=== PATIENT | female | born 1980 | race Hispanic/Latino ===

== ENCOUNTER → 2016-11-08 | Outpatient (CLI) | payer OTHER ==
[~2016-11-08] MED LIST: ADV250INH INH; ALBU17IN INH; PRENTAB9 PO
[2016-11-08 18:58] LABS: BASO # 0.1 K/mm3 (0.0-0.2); BASO % 0.7 % (0.0-1.0); EOS # 0.9 K/mm3 (0.0-0.50); EOS % 9.6 % (0.0-3.0); LARGE UNSTAINED CELL # 0.2 K/mm3 (0.0-0.4); LARGE UNSTAINED CELL % 2.1 % (0.0-4.0); LYMPH # 2.3 K/mm3 (1.5-4.5); LYMPH % 25.8 % (24.0-44.0); MEAN CORPUSCULAR HEMOGLOBIN 27.1 pg (27.0-33.0); MEAN CORPUSCULAR HGB CONC 32.6 g/dl (32.0-36.5); MEAN CORPUSCULAR VOLUME 83.2 fl (80.0-96.0); MONO # 0.4 K/mm3 (0.0-0.8); MONO % 4.6 % (0.0-5.0); NEUTROPHILS # 5.2 K/mm3 (1.8-7.7); NEUTROPHILS % 57.2 % (36.0-66.0); PLATELET COUNT, AUTOMATED 417 k/mm3 (150-450); RED CELL DISTRIBUTION WIDTH 13.9 % (11.5-14.5)
[2016-11-08 19:03] LABS: ALT/SGPT 21 U/L (12-78); AST/SGOT 11 U/L (15-37); BILIRUBIN,TOTAL 0.2 MG/DL (0.2-1.0); CREATININE FOR GFR 0.57 MG/DL (0.55-1.02); GLOMERULAR FILTRATION RATE > 60.0 (>60); URIC ACID 3.3 MG/DL (2.6-6.0)
== END ==
LOC: M SMT 15:01
PROVIDERS: ATTEND Advanced Practice Midwife
DX: Z34.82 Encounter for supervision of other normal pregnancy, second trimester (principal); Z36 Encounter for antenatal screening of mother; Z3A.00 Weeks of gestation of pregnancy not specified

== ENCOUNTER → 2016-11-29 | Outpatient (CLI) | payer OTHER ==
--- NOTE | 2016-11-29 14:57 | REP ---
Clinical: Anatomical evaluation. Comparison: None . Findings: Examination demonstrates a single live intrauterine in breech presentation. motion is identified by technologist. Placenta is noted anterior fundal and grade zero without evidence for placenta previa or abruption. Amniotic fluid volume is normal. Cervix measures 3.8 cm in length and appears closed. No evidence for nuchal cord. Gestational age by LMP 19 weeks 4-day with BOONE 04/21/2017 . Gestational age by current measurements 19 weeks 5 days with BOONE 04/20/2017 . FHR equals 153 beats per minute. BPD 4.5 cm 19 weeks 3 days HC 17.3 cm 19 weeks 6 days AC 14.7 cm 20 weeks 0 days FL 3.2 cm 19 weeks 6 days HL 2.9 cm 19 weeks 4 days HC/AC ratio 1.18 Estimated weight 320 grams ( 57th percentile). Anatomical assessment demonstrates normal structures including cranium, choroid plexus, cavum, cerebellum/posterior fossa, facial profile, lungs, four-chamber heart/ left ventricular outflow tract, diaphragm, stomach, cord insertion/three-vessel cord, kidneys/bladder, spine, and extremities. Limited evaluation of the nose and lips and right cardiac ventricular outflow tract as well as mild subjective renal pelviectasis which is within normal range. Impression: Single live intrauterine in breech presentation demonstrating appropriate interval growth. Anatomical limitations as described above. The remainder of the anatomical assessment is complete and normal. Signed by Missael Torres MD 11/29/2016 02:48 P
== END ==
LOC: M RAD 13:44
PROVIDERS: ATTEND Advanced Practice Midwife
DX: O32.1XX0 Maternal care for breech presentation, not applicable or unspecified (principal); Z36 Encounter for antenatal screening of mother; Z3A.19 19 weeks gestation of pregnancy

== ENCOUNTER → 2016-12-18 | Outpatient (CLI) | payer OTHER ==
--- NOTE | 2016-12-18 20:25 | REP ---
Obstetric sonography: History: Supervision of , followup anatomy. Findings: Scanning through the gravid uterus demonstrates a viable single intrauterine gestation in a transverse head to the maternal left lie. motion is observed and heart rate is recorded at 147 beats per minute. An anterior grade 1 placenta is seen without evidence of previa or abruption. Amniotic fluid is subjectively normal. Closed cervical length is 6.1 cm. This is measured transabdominally. There has been appropriate interval growth. The umbilical cord is seen draping across the shoulders and neck region. No abnormality is noted. Cross section of the umbilical cord is less than optimally seen today. spine is less than optimally seen today due to position, but these structures were identified previously. The following additional anatomic structures are identified today and felt to be sonographically unremarkable: cranium, cavum, cerebellum and posterior fossa, face and profile, lungs, four-chamber heart with left and right ventricular outflow tract views, diaphragm, left-sided stomach, abdominal wall cord insertion, kidneys and bladder, upper and lower extremities. Biometry chart: BPD 5.3 cm = 22 weeks 0 days HC 20.5 cm = 22 weeks 4 days AC 18.5 cm = 23 weeks 2 days FL 3.9 cm = 22 weeks 3 days HL 3.5 cm = 22 weeks 0 days HC/AC ratio normal 1.11. Cephalic index normal 0.70. Estimated weight 539 grams 1 pound 2 ounces 62nd percentile for 22 weeks 2 days. Impression: Viable single intrauterine gestation at 22 weeks 3 days by today's composite criteria. Expected gestational age estimate based on prior sonography is also 22 weeks 3 days. BOONE by prior sonography April 20, 2017. In combination with the previous study, anatomic survey is felt to be complete. Signed by Bubba Barnett MD 12/19/2016 09:29 A
== END ==
LOC: M RAD 17:43
PROVIDERS: ATTEND Advanced Practice Midwife
DX: Z36.2 Encounter for other antenatal screening follow-up (principal)

== ENCOUNTER 2016-12-21 10:33 | Outpatient (CLI) | payer OTHER ==
[~2016-12-21] VITALS: Ht 160 cm; Wt 78.2 kg
[2016-12-21] MEDS ORDERED: ADV250INH INH (11:04)
[2016-12-21] MEDS ORDERED: ALBU17IN INH (11:04)
[2016-12-21] MEDS ORDERED: PRENTAB9 PO (11:04)
[2016-12-21 11:06] VITALS: BP 107/68
[2016-12-21 11:45] VITALS: BP 116/65
[2016-12-21 12:15] VITALS: BP 127/78
== END 2016-12-21 12:32 | disposition home or self-care (01) ==
LOC: M LDO 10:33
PROVIDERS: ATTEND Obstetrics & Gynecology
DX: O99.89 Other specified diseases and conditions complicating pregnancy, childbirth and the puerperium (principal); Z3A.22 22 weeks gestation of pregnancy; W19.XXXA Unspecified fall, initial encounter; X58.XXXA Exposure to other specified factors, initial encounter; Y93.9 Activity, unspecified; Y92.9 Unspecified place or not applicable; Y99.8 Other external cause status

== ENCOUNTER → 2017-01-31 | Outpatient (CLI) | payer OTHER ==
[2017-01-31 13:14] LABS: BASO # 0.1 10^3/uL (0.0-0.2); BASO % 0.9 % (0.0-1.0); EOS # 0.5 10^3/uL (0.0-0.50); EOS % 6.3 % (0.0-3.0); IMMATURE GRANULOCYTE % 0.9 % (0-0); LYMPH # 2.3 10^3/uL (1.5-4.5); LYMPH % 26.6 % (24.0-44.0); MEAN CORPUSCULAR HEMOGLOBIN 25.1 pg (27.0-33.0); MEAN CORPUSCULAR HGB CONC 31.8 g/dl (32.0-36.5); MEAN CORPUSCULAR VOLUME 78.9 fl (80.0-96.0); MONO # 0.5 10^3/uL (0.0-0.8); MONO % 6.2 % (0.0-5.0); NEUTROPHILS % 59.1 % (36.0-66.0); PLATELET COUNT, AUTOMATED 380 10^3/uL (150-450); RED CELL DISTRIBUTION WIDTH 14.6 % (11.5-14.5); WHITE BLOOD COUNT 8.5 10^3/uL (4.0-10.0)
== END ==
LOC: M SMT 09:55
PROVIDERS: ATTEND Advanced Practice Midwife
DX: O09.513 Supervision of elderly primigravida, third trimester (principal)

== ENCOUNTER → 2017-02-09 | Outpatient (CLI) | payer OTHER | LOC: M LAB 07:12 | PROVIDERS: ATTEND Advanced Practice Midwife | DX: O09.523 Supervision of elderly multigravida, third trimester (principal) ==

== ENCOUNTER → 2017-02-14 | Outpatient (REF) | payer OTHER | LOC: M LAB REF 13:15 | PROVIDERS: ATTEND Advanced Practice Midwife | DX: O09.523 Supervision of elderly multigravida, third trimester (principal) ==

== ENCOUNTER → 2017-03-15 | Outpatient (CLI) | payer OTHER ==
[2017-03-15 18:35] LABS: MEAN CORPUSCULAR HEMOGLOBIN 23.1 pg (27.0-33.0); MEAN CORPUSCULAR HGB CONC 31.1 g/dl (32.0-36.5); MEAN CORPUSCULAR VOLUME 74.4 fl (80.0-96.0); PLATELET COUNT, AUTOMATED 400 10^3/uL (150-450); RED CELL DISTRIBUTION WIDTH 15.8 % (11.5-14.5); WHITE BLOOD COUNT 7.4 10^3/uL (4.0-10.0)
== END ==
LOC: M SMT 14:59
DX: O99.013 Anemia complicating pregnancy, third trimester (principal)

== ENCOUNTER 2017-04-06 16:25 | Inpatient (IN) | payer OTHER ==
[2017-04-06] MEDS ORDERED: LR 1,000 ML IV (18:22)
[2017-04-06 19:12] LABS: HEMATOCRIT 29.5 % (36.0-47.0); HEMOGLOBIN 9.3 g/dl (12.0-16.0); MEAN CORPUSCULAR HGB CONC 31.5 g/dl (32.0-36.5); MEAN CORPUSCULAR VOLUME 69.9 fl (80.0-96.0); PLATELET COUNT, AUTOMATED 358 10^3/uL (150-450); RED BLOOD COUNT 4.22 10^6/uL (4.00-5.40); RED CELL DISTRIBUTION WIDTH 16.8 % (11.5-14.5); WHITE BLOOD COUNT 8.3 10^3/uL (4.0-10.0)
[2017-04-06 19:41] LABS: CREATININE,RANDOM URINE 48.2 MG/DL
[2017-04-06 19:41] LABS: TOTAL PROTEIN,RANDOM URINE 13.8 MG/DL (0.0-12.0)
[2017-04-06 19:43] LABS: ALT/SGPT 13 U/L (12-78); AST/SGOT 22 U/L (7-37); BILIRUBIN,TOTAL 0.3 MG/DL (0.2-1.0); CREATININE FOR GFR 0.45 MG/DL (0.55-1.02); GLOMERULAR FILTRATION RATE > 60.0 (>60); LDH LACTATE DEHYDROGENASE 270 U/L (84-246); URIC ACID 3.1 MG/DL (2.6-6.0)
[2017-04-06] MEDS: ACETAMINOPHEN 500 MG TAB PO (20:23)
[2017-04-06] MEDS: miSOPROStol 50 MCG 1/2 TAB (S0191) SL (20:23)
[2017-04-06] MEDS: LACTATED RINGER'S 1000 ML IV (20:24)
[2017-04-06] MEDS: PENICILLIN G POTASSIUM IV 5 MU in D5W MINI-BAG PLUS 100 ML IV (20:24)
[2017-04-07] MEDS: PENICILLIN G POTASSIUM IV 2.5 MU in APPROPRIATE DILUENT 1 EA IV ×4 (00:30→13:24)
[2017-04-07] MEDS: OXYTOCIN DRIP 30 UNITS in APPROPRIATE DILUENT 1 EA IV (00:42)
[2017-04-07] MEDS ORDERED: FENTANYL 2MCG/ML ROPIVACAINE 0.2% IN 0.9% NACL 200ML IVBAG As Ordered (07:19)
[2017-04-07] MEDS ORDERED: EPIDURAL COMMENT XX (10:00)
[2017-04-07] MEDS ORDERED: REFRIGERATOR IV KEYS XX (10:00)
[2017-04-07] MEDS ORDERED: ePHEDrine INJ 50 MG/ML VIAL IV (10:00)
[2017-04-07] MEDS ORDERED: FENTANYL/ROPIVACAINE/NACL BAG 200 ML EPIDURAL (10:00)
[2017-04-07] MEDS ORDERED: EPIDURAL/PCA KEYS XX (10:00)
[2017-04-07] MEDS ORDERED: LACTATED RINGER'S 1000 ML IV (10:00)
[2017-04-07] MEDS ORDERED: NALOXONE INJ 0.4 MG/1 ML VIAL (J2310) IV ×3 (10:00→14:45)
[2017-04-07] MEDS ORDERED: diphenhydrAMINE INJ 50MG/ML VIAL (J1200) IV (10:00)
[2017-04-07] MEDS: ONDANSETRON 4MG/2ML VIAL (J2405) IV (10:13)
[2017-04-07] MEDS ORDERED: BICITRA 30ML SOLN UDC As Ordered (14:29)
[2017-04-07] MEDS ORDERED: ceFAZolin 2 GM/D5W 50 ML IV BAG (J0690 PER 500MG) As Ordered (14:32)
[2017-04-07] MEDS ORDERED: MORPHINE PRES-FREE INJ 10 MG/10 ML VIAL (J2274) As Ordered (14:34)
[2017-04-07] MEDS ORDERED: ONDANSETRON 4MG/2ML VIAL (J2405) IV ×3 (14:45→16:30)
[2017-04-07] MEDS ORDERED: METOCLOPRAMIDE INJ 10MG/2ML VIAL (J2765) IV (14:45)
[2017-04-07] MEDS ORDERED: AZITHROMYCIN INJ 500MG VIAL (J0456) As Ordered (14:53)
[2017-04-07] MEDS ORDERED: OXYTOCIN INJ 10 UNITS/ML VIAL (J2590) As Ordered ×6 (14:56→15:13)
[2017-04-07 15:00] LABS: CORD GAS ABE V -3.6; CORD GAS HCO3 V 23.4 MEQ/L; CORD GAS O2 SAT V 62.6 %; CORD GAS PCO2 V 49.3 mmHg; CORD GAS PH V 7.295 UNITS; CORD GAS PO2 V 26.3 mmHg; CORD GAS SBC V 20.6 MEQ/L
[2017-04-07 15:01] LABS: CORD GAS ABE A -5.1; CORD GAS HCO3 A 21.1 MEQ/L; CORD GAS O2 SAT A 57.4 %; CORD GAS PCO2 A 42.9 mmHg; CORD GAS PH A 7.309 UNITS; CORD GAS PO2 A 25.5 mmHg; CORD GAS SBC A 19.4 MEQ/L; CORD GAS TCO2 A 22.4 MEQ/L
[2017-04-07] MEDS ORDERED: ONDANSETRON 4MG/2ML VIAL (J2405) As Ordered (15:07)
[2017-04-07] MEDS ORDERED: METOCLOPRAMIDE INJ 10MG/2ML VIAL (J2765) As Ordered (15:07)
[2017-04-07] MEDS ORDERED: PHENYLephrine HCL 500 MCG/5 ML (100MCG/ML) SYRINGE (J2370) As Ordered (15:07)
[2017-04-07] MEDS ORDERED: ePHEDrine INJ 50 MG/ML VIAL As Ordered (15:16)
[2017-04-07 15:43] LABS: IMMEDIATE SPIN CROSSMATCH 1 3
[2017-04-07 15:47] LABS: HEMATOCRIT 24.5 % (36.0-47.0); HEMOGLOBIN 7.8 g/dl (12.0-16.0); MEAN CORPUSCULAR HEMOGLOBIN 21.8 pg (27.0-33.0); MEAN CORPUSCULAR HGB CONC 31.8 g/dl (32.0-36.5); MEAN CORPUSCULAR VOLUME 68.6 fl (80.0-96.0); PLATELET COUNT, AUTOMATED 208 10^3/uL (150-450); RED BLOOD COUNT 3.57 10^6/uL (4.00-5.40); RED CELL DISTRIBUTION WIDTH 16.6 % (11.5-14.5); WHITE BLOOD COUNT 7.8 10^3/uL (4.0-10.0)
[2017-04-07] MEDS ORDERED: RHOGAM 300 MCG (1500 IU) INJ (J2790) IM (16:30)
[2017-04-07] MEDS ORDERED: PROMETHAZINE 25 MG TAB PO (16:30)
[2017-04-07] MEDS ORDERED: MEASLES,MUMPS,RUBELLA VACCINE INJ (MMR-II) (90707) SC (16:30)
[2017-04-07] MEDS ORDERED: KETOROLAC 30 MG/ML VIAL (J1885) IV (16:30)
[2017-04-07] MEDS ORDERED: fentaNYL 100 MCG/2 ML INJECTION (J3010) IV (16:30)
[2017-04-07] MEDS: DOCUSATE SODIUM 100 MG CAP PO (21:00)
[2017-04-07] MEDS: LOPERAMIDE 2 MG CAP PO (21:06)
[2017-04-07] MEDS: LR 1,000 ML IV (21:06)
[2017-04-07] MEDS: miSOPROStol 200 MCG TAB (S0191) PR (21:16)
[2017-04-07] MEDS: KETOROLAC 30 MG/ML VIAL (J1885) IV (22:49)
[2017-04-08] MEDS: LR 1,000 ML IV ×2 (01:20→08:18)
[2017-04-08] MEDS: NALBUPHINE HCL 10 MG/ML AMP (J2300) IV (01:21)
[2017-04-08] MEDS: KETOROLAC 30 MG/ML VIAL (J1885) IV ×3 (05:12→17:12)
[2017-04-08 06:51] LABS: HEMATOCRIT 27.3 % (36.0-47.0); MEAN CORPUSCULAR HEMOGLOBIN 23.7 pg (27.0-33.0); PLATELET COUNT, AUTOMATED 245 10^3/uL (150-450); RED BLOOD COUNT 3.79 10^6/uL (4.00-5.40); RED CELL DISTRIBUTION WIDTH 17.7 % (11.5-14.5); WHITE BLOOD COUNT 15.5 10^3/uL (4.0-10.0)
[2017-04-08] MEDS: PRENATAL VITAMINS CHEWABLE TABLET PO (09:55)
[2017-04-08] MEDS: DOCUSATE SODIUM 100 MG CAP PO ×2 (09:55→19:39)
[2017-04-08] MEDS: PERCOCET 5MG/325MG TAB PO ×3 (09:56→19:40)
[2017-04-09] MEDS: IBUPROFEN 800 MG TAB PO ×3 (00:37→17:05)
[2017-04-09] MEDS: PERCOCET 5MG/325MG TAB PO ×4 (00:37→21:31)
[2017-04-09] MEDS: PRENATAL VITAMINS CHEWABLE TABLET PO (08:34)
[2017-04-09] MEDS: DOCUSATE SODIUM 100 MG CAP PO ×2 (08:34→21:29)
[2017-04-10] MEDS: IBUPROFEN 800 MG TAB PO ×2 (00:58→09:49)
[2017-04-10] MEDS: PERCOCET 5MG/325MG TAB PO (03:51)
[2017-04-10] MEDS: DOCUSATE SODIUM 100 MG CAP PO (09:47)
[2017-04-10] MEDS: PRENATAL VITAMINS CHEWABLE TABLET PO (09:48)
== END 2017-04-10 11:50 | disposition home or self-care (01) | DRG 766 ==
LOC: M LDO 16:25 → M OBS 04-07 17:35 → M LDI 18:44
PROC: 10D00Z1 Extraction of Products of Conception, Low, Open Approach (ICD-10-PCS; principal; 2017-04-07 14:33)
PROC: 3E0P7GC Introduction of Other Therapeutic Substance into Female Reproductive, Via Natural or Artificial Opening (ICD-10-PCS; 2017-04-07 14:33)
PROC: 10907ZC Drainage of Amniotic Fluid, Therapeutic from Products of Conception, Via Natural or Artificial Opening (ICD-10-PCS; 2017-04-07 14:33)
PROC: 30253N1 (ICD-10-PCS; 2017-04-07 14:33)
DX: O14.94 Unspecified pre-eclampsia, complicating childbirth (principal); O99.824 Streptococcus B carrier state complicating childbirth; O72.1 Other immediate postpartum hemorrhage; Z3A.37 37 weeks gestation of pregnancy; O99.02 Anemia complicating childbirth; D64.9 Anemia, unspecified; O76 Abnormality in fetal heart rate and rhythm complicating labor and delivery; O64.8XX0 Obstructed labor due to other malposition and malpresentation, not applicable or unspecified; Z37.0 Single live birth

== ENCOUNTER 2018-01-28 08:08 | Emergency (ER) | payer OTHER ==
[2018-01-28] MEDS: ONDANSETRON 4MG/2ML VIAL (J2405) IV (08:46)
[2018-01-28] MEDS: NS 500 ML IV (08:46)
[2018-01-28] MEDS: KETOROLAC 30 MG/ML VIAL (J1885) IV (08:47)
[2018-01-28 08:51] LABS: BASO # 0.1 10^3/uL (0.0-0.2); BASO % 1.4 % (0.0-1.0); EOS # 0.6 10^3/uL (0.0-0.50); EOS % 8.8 % (0.0-3.0); HEMATOCRIT 39.5 % (36.0-47.0); HEMOGLOBIN 12.8 g/dl (12.0-15.5); IMMATURE GRANULOCYTE % 0.2 % (0-3.0); LYMPH # 2.7 10^3/uL (1.5-4.5); LYMPH % 43.2 % (24.0-44.0); MEAN CORPUSCULAR HEMOGLOBIN 26.4 pg (27.0-33.0); MEAN CORPUSCULAR HGB CONC 32.4 g/dl (32.0-36.5); MEAN CORPUSCULAR VOLUME 81.4 fl (80.0-96.0); MONO # 0.4 10^3/uL (0.0-0.8); MONO % 6.2 % (0.0-5.0); NEUTROPHILS # 2.5 10^3/uL (1.8-7.7); NEUTROPHILS % 40.2 % (36.0-66.0); PLATELET COUNT, AUTOMATED 359 10^3/uL (150-450); RED BLOOD COUNT 4.85 10^6/uL (4.00-5.40); RED CELL DISTRIBUTION WIDTH 14.8 % (11.5-14.5); WHITE BLOOD COUNT 6.3 10^3/uL (4.0-10.0)
[2018-01-28 08:59] LABS: APPEARANCE, URINE CLEAR (CLEAR); BACTERIA, URINE AUTO NEGATIVE (NEGATIVE); BILIRUBIN, URINE AUTO NEGATIVE (NEGATIVE); BLOOD, URINE BLOOD NEGATIVE (NEGATIVE); COLOR, URINE YELLOW (YELLOW); GLUCOSE, URINE (UA) AUTO NEGATIVE (NEGATIVE); KETONE, URINE AUTO TRACE mg/dL (NEGATIVE); LEUKOCYTE ESTERASE, URINE AUTO TRACE (NEGATIVE); MUCUS, URINE MODERATE (NEGATIVE); NITRITE, URINE AUTO NEGATIVE (NEGATIVE); PROTEIN, URINE AUTO NEGATIVE (NEGATIVE); RBC, URINE AUTO 1 /HPF (0-3); SPECIFIC GRAVITY URINE AUTO 1.024 (1.002-1.035); SQUAMOUS EPITHELIAL CELL UR AU 3 /HPF (0-6); WBC, URINE AUTO 4 /HPF (0-3)
[2018-01-28] MEDS: GASTROGRAFIN SOLUTION 30ML PO ×2 (09:18→10:00)
[2018-01-28 09:39] LABS: LACTIC ACID SEPSIS PROTOCOL 1.8 MMOL/L (0.4-2.0)
[2018-01-28 09:40] LABS: ALBUMIN/GLOBULIN RATIO 1.11 (1.00-1.93); ALKALINE PHOSPHATASE 141 U/L (45-117); ALT/SGPT 143 U/L (12-78); AMYLASE 51 U/L (25-115); ANION GAP 8 MEQ/L (8-16); AST/SGOT 77 U/L (7-37); BILIRUBIN,TOTAL 0.4 MG/DL (0.2-1.0); BLOOD UREA NITROGEN 10 MG/DL (7-18); C REACTIVE PROTEIN QUANTITATIV < 0.30 MG/DL (0.00-0.30); CALCIUM LEVEL 8.6 MG/DL (8.5-10.1); CARBON DIOXIDE LEVEL 26 MEQ/L (21-32); CHLORIDE LEVEL 106 MEQ/L (98-107); GLOMERULAR FILTRATION RATE > 60.0 (>60); GLUCOSE, FASTING 97 MG/DL (70-100); LIPASE 87 U/L (73-393); POTASSIUM SERUM 4.3 MEQ/L (3.5-5.1); SODIUM LEVEL 140 MEQ/L (136-145); TOTAL PROTEIN 7.6 GM/DL (6.4-8.2)
[2018-01-28] MEDS: MORPHINE 4 MG/ML 1ML VIAL/SYRINGE (J2270) IV (10:00)
[2018-01-28] MEDS ORDERED: ISOVUE-370 76% 100ML VIAL (Q9967) As Ordered (10:32)
== END 2018-01-28 11:55 | disposition home or self-care (01) ==
LOC: M ED 08:08
DX: R10.10 Upper abdominal pain, unspecified (principal); R11.2 Nausea with vomiting, unspecified; I10 Essential (primary) hypertension; J45.909 Unspecified asthma, uncomplicated; Z72.0 Tobacco use; Z79.899 Other long term (current) drug therapy
CPT/HCPCS: J2270

== ENCOUNTER 2018-01-28 22:48 | Emergency (ER) | payer OTHER ==
[2018-01-29] MEDS: SIMETHICONE 80 MG CHEW TAB PO (00:20)
[2018-01-29] MEDS: GI COCKTAIL 50ML BTL(HYOSCYAMINE/MAALOX/LIDOCAINE VISCOUS)(1:3:1) PO (00:21)
[2018-01-29] MEDS: ONDANSETRON 4MG/2ML VIAL (J2405) IV (00:21)
[2018-01-29 00:30] LABS: BASO # 0.1 10^3/uL (0.0-0.2); BASO % 1.3 % (0.0-1.0); EOS # 0.6 10^3/uL (0.0-0.50); EOS % 6.4 % (0.0-3.0); HEMOGLOBIN 11.9 g/dl (12.0-15.5); IMMATURE GRANULOCYTE % 0.2 % (0-3.0); LYMPH # 2.5 10^3/uL (1.5-4.5); MEAN CORPUSCULAR HEMOGLOBIN 26.3 pg (27.0-33.0); MEAN CORPUSCULAR HGB CONC 32.2 g/dl (32.0-36.5); MEAN CORPUSCULAR VOLUME 81.7 fl (80.0-96.0); MONO # 0.6 10^3/uL (0.0-0.8); MONO % 6.6 % (0.0-5.0); NEUTROPHILS # 4.9 10^3/uL (1.8-7.7); NEUTROPHILS % 56.5 % (36.0-66.0); PLATELET COUNT, AUTOMATED 326 10^3/uL (150-450); RED BLOOD COUNT 4.53 10^6/uL (4.00-5.40); RED CELL DISTRIBUTION WIDTH 14.8 % (11.5-14.5); WHITE BLOOD COUNT 8.8 10^3/uL (4.0-10.0)
[2018-01-29 00:53] LABS: ALBUMIN 3.8 GM/DL (3.2-5.2); ALBUMIN/GLOBULIN RATIO 1.12 (1.00-1.93); ALKALINE PHOSPHATASE 117 U/L (45-117); ALT/SGPT 150 U/L (12-78); ANION GAP 5 MEQ/L (8-16); AST/SGOT 87 U/L (7-37); BILIRUBIN,TOTAL 0.4 MG/DL (0.2-1.0); BLOOD UREA NITROGEN 10 MG/DL (7-18); CALCIUM LEVEL 8.5 MG/DL (8.5-10.1); CARBON DIOXIDE LEVEL 27 MEQ/L (21-32); CHLORIDE LEVEL 106 MEQ/L (98-107); CREATININE FOR GFR 0.68 MG/DL (0.55-1.30); GLOMERULAR FILTRATION RATE > 60.0 (>60); GLUCOSE, FASTING 98 MG/DL (70-100); LIPASE 104 U/L (73-393); POTASSIUM SERUM 4.5 MEQ/L (3.5-5.1); SODIUM LEVEL 138 MEQ/L (136-145); TOTAL PROTEIN 7.2 GM/DL (6.4-8.2)
[2018-01-29] MEDS: KETOROLAC 30 MG/ML VIAL (J1885) IV (01:08)
[2018-01-29] MEDS: MAGNESIUM CITRATE 300 ML BTL PO (01:09)
[2018-01-30 10:06] LABS: HEPATITIS B SURFACE ANTIGEN NEGATIVE (NEGATIVE)
[2018-01-30 10:33] LABS: HEPATITIS B CORE ANTIBODY IGM NEGATIVE (NEGATIVE); HEPATITIS C VIRUS ABY INDEX 0.1 INDEX (<0.8)
[2018-01-30 10:36] LABS: HEPATITIS A ANTIBODY IGM NEGATIVE (NEGATIVE)
== END 2018-01-29 01:22 | disposition home or self-care (01) ==
LOC: M ED 22:48
DX: K59.00 Constipation, unspecified (principal); R14.0 Abdominal distension (gaseous); Z79.899 Other long term (current) drug therapy
CPT/HCPCS: J2405